=== PATIENT | male | born 1985 | race Caucasian/White ===

== ENCOUNTER 2020-10-09 13:15 | Emergency (ER) | payer BC, MEDICAID ==
[2020-10-09] MEDS ORDERED: ALBUTEROL 1 PUFF INH STA (14:23)
--- NOTE | 2020-10-09 14:30 | XRAY Report ---
PROCEDURE: Chest 1 View X-Ray INDICATIONS: dyspnea TECHNIQUE: One view of the chest was acquired. COMPARISON: None FINDINGS: Surgical changes and devices: None. Lungs and pleura: No pleural effusions or pneumothorax. Lungs are clear. Mediastinum: Mediastinal contours appear normal. Heart size is normal. Bones and chest wall: No suspicious bony lesions. Overlying soft tissues appear unremarkable. IMPRESSION: No abnormalities found. Reviewed by: Steven Lan MD on 10/09/2020 2:29 PM PST Approved by: Steven Lan MD on 10/09/2020 2:29 PM PST Station ID: [id number]
--- NOTE | 2020-10-09 14:38 | ED Physician Documentation ---
PD HPI URI - Stated complaint Stated Complaint: SOA/COUGH - Chief complaint Chief Complaint: Resp - History obtained from History obtained from: Patient - History of Present Illness Pain level max: 0 Pain level now: 0 Associated symptoms: Productive cough, Dyspnea (wheezing). No: Fever, Chills, Hemoptysis, Chest pain Contributing factors: Sick contact Improves by: Rest Recently seen: Not recently seen - Additional information Additional information: 35-year-old male presents to the emergency department stating that he has had cough and congestion for the past 3 days, increasing shortness of breath. Feels like he is wheezing when he lays down. No history of asthma. Does not use inhalers. Has had pneumonia in the past. No fevers. 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 Worse with walking, better with rest. Review of Systems Constitutional: denies: Fever, Chills Throat: denies: Sore throat Cardiac: denies: Chest pain / pressure Respiratory: reports: Cough, Wheezing GI: denies: Nausea, Vomiting, Diarrhea Skin: denies: Rash Musculoskeletal: denies: Neck pain, Back pain Neurologic: denies: Headache PD PAST MEDICAL HISTORY - Past Medical History Past Medical History: No - Past Surgical History Past Surgical History: Yes HEENT: Tonsil/Adenoidectomy - Present Medications Home Medications: Ambulatory Orders Medication Instructions Recorded Confirmed Albuterol Sulf [Ventolin Hfa 1 - 2 puffs INH Q4HR PRN #1 inhaler 10/09/20 Inhaler] - Allergies Allergies/Adverse Reactions: Allergies Allergy/AdvReac Type Severity Reaction Status Date / Time Sulfa (Sulfonamide Allergy Anaphylaxis Verified 10/09/20 13:26 Antibiotics) - Living Situation Living Situation: reports: With family Living Arrangement: reports: At home - Social History Does the pt smoke?: No Smoking Status: Never smoker Does the pt drink ETOH?: No Does the pt have substance abuse?: No PD ED PE NORMAL - Vitals Vital signs reviewed: Yes - General General: Alert and oriented X 3, No acute distress - HEENT HEENT: Moist mucous membranes - Neck Neck: Supple, no meningeal sign - Cardiac Cardiac: RRR - Respiratory Respiratory: No respiratory distress, Other (Mild wheezing bilaterally) - Abdomen Abdomen: Soft, Non tender, Non distended - Derm Derm: Warm and dry - Extremities Extremities: No edema - Neuro Neuro: Alert and oriented X 3 Results - Vitals Vitals: Vital Signs - 24 hr 10/09/20 10/09/20 10/09/20 13:26 13:30 14:01 Temperature 37.5 C Heart Rate 94 100 90 Respiratory 18 23 23 Rate Blood Pressure 158/103 H 158/107 H 174/105 H O2 Saturation 97 98 98 10/09/20 10/09/20 10/09/20 14:30 14:46 15:00 Temperature Heart Rate 86 91 85 Respiratory 19 22 22 Rate Blood Pressure 171/116 H 175/125 H O2 Saturation 96 95 10/09/20 10/09/20 10/09/20 15:30 16:00 16:49 Temperature 36.6 C Heart Rate 80 85 100 Respiratory 11 L 29 H 20 Rate Blood Pressure 181/125 H 181/106 H 169/99 H O2 Saturation 97 98 100 Oxygen O2 Source Room air - Labs Labs: Laboratory Tests 10/09/20 14:26 Nasal Adenovirus (PCR) NOT DETECTED Nasal B. parapertussis DNA (PCR) NOT DETECTED Nasal Coronavir 229E PCR NOT DETECTED Nasal Coronavir HKU1 PCR NOT DETECTED Nasal Coronavir NL63 PCR NOT DETECTED Nasal Coronavir OC43 PCR NOT DETECTED Nasal Enterovir/Rhinovir PCR NOT DETECTED Nasal Influenza B PCR NOT DETECTED Nasal Influenza A PCR NOT DETECTED Nasal Parainfluen 1 PCR NOT DETECTED Nasal Parainfluen 2 PCR NOT DETECTED Nasal Parainfluen 3 PCR NOT DETECTED Nasal Parainfluen 4 PCR NOT DETECTED Nasal RSV (PCR) NOT DETECTED Nasal B.pertussis DNA PCR NOT DETECTED Nasal C.pneumoniae (PCR) NOT DETECTED [place] Human Metapneumo PCR NOT DETECTED Nasal M.pneumoniae (PCR) NOT DETECTED Nasal SARS-CoV-2 (PCR) NOT DETECTED PD MEDICAL DECISION MAKING - ED course Complexity details: reviewed results, re-evaluated patient, considered differential, d/w patient ED course: 35-year-old male presents to the emergency department with viral URI symptoms. Negative respiratory panel. Negative x-ray. Wheezing resolved with albuterol treatment. No hypoxia. No respiratory distress. Negative Covid. We will continue supportive care and have him follow-up with his doctor. Patient counseled regarding signs and symptoms for which I believe and urgent re- evaluation would be necessary. Patient with good understanding of and agreement to plan and is comfortable going home at this time. This document was made in part using voice recognition software. While efforts are made to proofread this document, sound alike and grammatical errors may occur. Departure - Departure Disposition: 01 Home, Self Care Clinical Impression: Viral URI with cough Condition: Good Instructions: ED URI Viral Follow-Up: your,doctor as needed. [Other] Prescriptions: Albuterol Sulf [Ventolin Hfa Inhaler] 1 - 2 puffs INH Q4HR PRN #1 inhaler PRN Reason: Shortness Of Air/Wheezing Comments: Your chest x-ray does not show any acute abnormalities today. Your respiratory panel is negative. Your Covid test is negative. This should improve over the next week or so. Use the inhaler as needed. Discharge Date/Time: 10/09/20 16:49
[2020-10-09 16:24] LABS: C. PNEUMONIAE- RESP PCR PANEL NOT DETECTED
[2020-10-09 16:51] VITALS: BP 169/99
== END 2020-10-09 16:49 | disposition home or self-care (01) ==
LOC: ED 13:15
DX: J06.9 Acute upper respiratory infection, unspecified (principal); Z20.828 Contact with and (suspected) exposure to other viral communicable diseases
CPT/HCPCS: 0202U; 71045; 94640; 94664; 99283; 99284

== ENCOUNTER 2020-11-17 08:00 | Outpatient (CLI) | payer BC | END 2020-11-17 23:59 | LOC: LAB.R 08:00 | PROVIDERS: ATTEND Family Medicine | DX: Z20.828 Contact with and (suspected) exposure to other viral communicable diseases (principal) | CPT/HCPCS: 87275; 87276 ==

== ENCOUNTER 2021-06-07 09:07 | Outpatient (CLI) | payer BC ==
--- NOTE | 2021-06-07 10:50 | XRAY Report ---
PROCEDURE: Lumbar Spine 2 View INDICATIONS: BACK PAIN LUMBAR TECHNIQUE: 2 views of the lumbar spine were acquired. COMPARISON: None. FINDINGS: Bones: Mild lumbar levoscoliosis. No listhesis. Vertebral body heights maintained. Disc height loss f rom L1-L2 through L5-S1 with associated degenerative change of facet hypertrophy, worst from L3-L4 th rough L5-S1. Sacroiliac joint spaces are maintained. Soft tissues: Overlying bowel gas pattern is normal. No suspicious soft tissue calcifications. IMPRESSION: Overall moderate lower lumbar spine degenerative changes. Reviewed by: Bill Carey MD on 06/07/2021 10:49 AM PDT Approved by: Bill Carey MD on 06/07/2021 10:49 AM PDT Station ID: [id number]
== END 2021-06-07 23:59 | disposition home or self-care (01) ==
LOC: DI.N 09:07
PROVIDERS: ATTEND Family Medicine
DX: M47.816 Spondylosis without myelopathy or radiculopathy, lumbar region (principal); M47.817 Spondylosis without myelopathy or radiculopathy, lumbosacral region; M51.36 Other intervertebral disc degeneration, lumbar region; M51.37 Other intervertebral disc degeneration, lumbosacral region

== ENCOUNTER 2022-04-24 21:01 | Emergency (ER) | payer BC ==
--- NOTE | 2022-04-24 21:47 | ED Physician Documentation ---
History of Present Illness - Stated complaint Stated Complaint: LT SIDE BACK PX - Chief complaint Chief Complaint: Abd Pain - History obtained from History obtained from: Patient - Additonal information Additional information: The patient comes to the emergency department chief complaint of a deep ache in his left flank that started earlier today. The patient states that he was feeling fine yesterday, and he is not really sure what caused the pain to,. 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 He denies any chronic back issues. Patient has no history of kidney stones and does not know of any family members who do. He is not noticed any blood in his urine. No dysuria, fever, or chills. No nausea. The patient denies any radiation of the pain. He states it is about a 4/10 and is worse if he takes a very deep breath or steps down. No other complaints at this time. Review of Systems Ten Systems: 10 systems reviewed and negative Constitutional: reports: Reviewed and negative Eyes: reports: Reviewed and negative Ears: reports: Reviewed and negative Nose: reports: Reviewed and negative Throat: reports: Reviewed and negative Cardiac: reports: Reviewed and negative Respiratory: reports: Reviewed and negative GI: reports: Reviewed and negative : reports: Reviewed and negative Skin: reports: Reviewed and negative Musculoskeletal: reports: Back pain (L flank/CVA) Neurologic: reports: Reviewed and negative Psychiatric: reports: Reviewed and negative Endocrine: reports: Reviewed and negative Immunocompromised: reports: Reviewed and negative PD PAST MEDICAL HISTORY - Past Medical History Past Medical History: Yes Cardiovascular: Hypertension Psych: Depression, Anxiety - Past Surgical History Past Surgical History: Yes General: Gastric surgery HEENT: Tonsil/Adenoidectomy - Present Medications Home Medications: Ambulatory Orders Medication Instructions Recorded Confirmed Albuterol Sulf [Ventolin Hfa 1 - 2 puffs INH Q4HR PRN #1 inhaler 10/09/20 04/24/22 Inhaler] Cyclobenzaprine [Flexeril] 10 mg PO TID PRN #20 tablet 04/24/22 Escitalopram [Lexapro] 10 mg PO DAILY 04/24/22 04/24/22 - Allergies Allergies/Adverse Reactions: Allergies Allergy/AdvReac Type Severity Reaction Status Date / Time Sulfa (Sulfonamide Allergy Anaphylaxis Verified 04/24/22 21:08 Antibiotics) - Social History Does the pt smoke?: No Smoking Status: Never smoker Does the pt drink ETOH?: Yes Does the pt have substance abuse?: No - Immunizations Immunizations are current?: No - POLST Patient has POLST: No PD ED PE NORMAL - Vitals Vital signs reviewed: Yes - General General: Alert and oriented X 3, No acute distress, Well developed/nourished - HEENT HEENT: Atraumatic, PERRL, EOMI, Moist mucous membranes - Neck Neck: Supple, no meningeal sign, No bony TTP - Cardiac Cardiac: RRR, No murmur, Strong equal pulses - Respiratory Respiratory: No respiratory distress, Clear bilaterally - Abdomen Abdomen: Soft, Non tender, Non distended - Back Back: No CVA TTP, No spinal TTP, Other (No tenderness to palpation at any point in patient's left back.) - Derm Derm: Normal color, Warm and dry, No rash - Extremities Extremities: No deformity, No edema - Neuro Neuro: Alert and oriented X 3, recording artist 2-12 intact - Psych Psych: Normal mood, Normal affect Results - Vitals Vitals: Vital Signs - 24 hr 04/24/22 04/24/22 04/24/22 21:05 21:08 23:22 Temperature 36.3 C L 36.4 C L 36.9 C Heart Rate 92 71 76 Respiratory 14 16 12 Rate Blood Pressure 131/105 H 143/100 H 138/98 H O2 Saturation 98 97 99 Oxygen O2 Source Room air - Labs Labs: Laboratory Tests 04/24/22 20:30 Urine Color YELLOW Urine Clarity CLEAR Urine pH 6.0 Ur Specific [place] >=1.030 H Urine Protein NEGATIVE Urine Glucose (UA) NEGATIVE Urine Ketones NEGATIVE Urine Occult Blood NEGATIVE Urine Nitrite NEGATIVE Urine Bilirubin NEGATIVE Urine Urobilinogen 0.2 (NORMAL) Ur Leukocyte Esterase NEGATIVE Ur Microscopic Review NOT INDICATED Urine Culture Comments NOT INDICATED - Rads (name of study) CT abdomen pelvis without contrast Radiology: Final report received, EMP read indepedently, See rad report (3 mm stone within the kidney, but no ureterolithiasis. No other abnormalities.) PD MEDICAL DECISION MAKING - ED course Complexity details: reviewed results, re-evaluated patient, considered differential, d/w patient ED course: Patient declined symptomatic management in the emergency department. CT abdomen pelvis without contrast was obtained and showed a small stone within the left kidney but no stone in the ureter. Remainder of CT was unremarkable. The patient was advised regarding symptomatic management at home. We have discussed the usual indications for follow-up and return. Departure - Departure Disposition: 01 Home, Self Care Clinical Impression: Low back strain Qualifiers: Encounter type: initial encounter Qualified Code(s): S39.012A - Strain of muscle, fascia and tendon of lower back, initial encounter Condition: Stable Instructions: ED Sprain Strain Lumbar Prescriptions: Cyclobenzaprine [Flexeril] 10 mg PO TID PRN #20 tablet PRN Reason: Spasms Comments: A preliminary look at your CT scan demonstrates no kidney stone in the ureter. You do have what appears to be a small stone sitting in your left kidney, but since this is not coming down at this point in time, it should not be the cause of your pain. No other obvious abnormalities have been found on your CT and most likely, the pain is coming from a musculoskeletal origin. You may take the muscle relaxers, as needed, along with ibuprofen and/or Tylenol. You may try heat packs and stretches to help, as well. Please follow-up with your primary care physician if needed. Your prescription has been electronically transmitted to [facility] in [place]. Discharge Date/Time: 04/24/22 23:23
[2022-04-24 22:36] LABS: BILIRUBIN,URINE NEGATIVE (NEGATIVE); GLUCOSE, URINE (UA) NEGATIVE (NEGATIVE); KETONES,URINE (UA) NEGATIVE (NEGATIVE); LEUKOCYTE ESTERASE, URINE NEGATIVE (NEGATIVE); NITRITE,URINE NEGATIVE (NEGATIVE); OCCULT BLOOD,URINE NEGATIVE (NEGATIVE); PROTEIN,URINE NEGATIVE (NEGATIVE); UROBILINOGEN,URINE 0.2 (NORMAL) E.U./dL (NORMAL)
[2022-04-24 22:37] LABS: CLARITY,URINE CLEAR (CLEAR)
[2022-04-24] MEDS ORDERED: CYCLOBENZAPRINE 10 MG Prepack 2 PO PRN (23:13)
[2022-04-24 23:23] VITALS: BP 138/98
--- NOTE | 2022-04-24 23:42 | CT Report ---
PROCEDURE: Abdomen/Pelvis WO INDICATIONS: L flank pain TECHNIQUE: Noncontrast 5 mm thick sections acquired from the diaphragms to the symphysis. 5 mm coronal and sagi ttal reformats were then performed. For radiation dose reduction, the following was used: automated exposure control, adjustment of mA and/or kV according to patient size. COMPARISON: None. FINDINGS: Image quality: Excellent. ABDOMEN: Lung bases: There is mild dependant atelectasis. Heart: Heart is normal in size. URINARY: Right Kidney and Ureter: No stones or hydronephrosis. No perinephric stranding. No hydroureter. Left Kidney and Ureter: There is a nonobstructing left renal stone measuring up to 0.3 cm no hydrone phrosis or perinephric stranding. No hydroureter. Bladder: Normal wall thickness. No stones. ABDOMEN: Liver: Noncontrast evaluation of the liver demonstrates no discrete mass. Gallbladder: Within normal limits without calcified gallstones. Biliary ducts: No biliary ductal dilatation. Pancreas: Unremarkable. Spleen: Normal in size. Adrenal Glands: No adrenal nodules. Stomach and Bowel: There are postsurgical changes along the stomach consistent with stomach consiste nt with prior gastric surgery. Stomach, small bowel loops, and colon are normal in caliber and wall t hickness. No evidence of appendicitis. There is colonic diverticulosis without acute diverticulitis. Peritoneum: No abnormal intraperitoneal fluid. No free air. Ventral Wall: No hernia. Abdominal Nodes: No retroperitoneal or mesenteric adenopathy by size criteria. Vessels: Aorta and inferior vena cava are normal in size. PELVIS: Pelvic Organs: Unremarkable. Pelvic Nodes: No enlarged lymph nodes. Miscellaneous: No inguinal hernias identified. Bones: Visualized osseous structures demonstrate a lucent lesion with septations in the L1 vertebral body consistent with a hemangioma. IMPRESSION: 1. Left nephrolithiasis without evidence of obstructive uropathy. 2. No acute abdominal abnormality. Specifically, there is colonic diverticulosis without acute divert iculitis Reviewed by: Jayden Kahn MD on 04/24/2022 11:45 PM PDT Approved by: Jayden Kahn MD on 04/24/2022 11:45 PM PDT Station ID: [id number]
== END 2022-04-24 23:23 | disposition home or self-care (01) ==
LOC: ED 21:01
DX: S39.012A Strain of muscle, fascia and tendon of lower back, initial encounter (principal); X58.XXXA Exposure to other specified factors, initial encounter; I10 Essential (primary) hypertension
CPT/HCPCS: 81001; 81003; 87086; 99282; 99284

== ENCOUNTER 2023-09-10 07:09 | Outpatient (CLI) | payer BC ==
[2023-09-10 07:45] LABS: ALBUMIN 4.7 g/dL (3.2-5.5); ALBUMIN/GLOBULIN RATIO 1.5 (1.0-2.2); ALKALINE PHOSPHATASE 116 IU/L (42-121); ALT ALANINE AMINOTRANSFERASE 60 IU/L (10-60); AST ASPARTATE AMINOTRANSFERASE 37 IU/L (10-42); BILIRUBIN,TOTAL 0.7 mg/dL (0.2-1.0); BUN - BLOOD UREA NITROGEN 17 mg/dL (6-20); CALCIUM 9.7 mg/dL (8.5-10.3); CARBON DIOXIDE - CO2 30 mmol/L (21-32); CHLORIDE 100 mmol/L (101-111); CHOLESTEROL 228 mg/dL; CREATININE 0.8 mg/dL (0.6-1.3); GFR - MDRD 108 (>89); GLUCOSE 85 mg/dL (74-104); POTASSIUM 3.8 mmol/L (3.5-4.5); SODIUM 138 mmol/L (135-145); TOTAL PROTEIN 7.9 g/dL (6.4-8.9); TRIGLYCERIDES 169 mg/dL (48-352); VLDL CHOLESTEROL 34 mg/dL
[2023-09-10 07:55] LABS: BASOPHILS # (AUTO) 0.1 10^3/uL (0.0-0.1); BASOPHILS % (AUTO) 0.6 %; EOSINOPHILS # (AUTO) 0.3 10^3/uL (0.0-0.7); EOSINOPHILS % (AUTO) 3.1 %; HCT - HEMATOCRIT 40.4 % (42.0-52.0); HGB - HEMOGLOBIN 13.5 g/dL (14.0-18.0); LYMPHOCYTES # (AUTO) 2.3 10^3/uL (1.5-3.5); LYMPHOCYTES % (AUTO) 24.6 %; MEAN CORPUSCULAR HEMOGLOBIN 29.3 pg (27.0-31.0); MEAN CORPUSCULAR HGB CONC 33.4 g/dL (32.0-36.0); MEAN CORPUSCULAR VOLUME 87.6 fL (80.0-94.0); MEAN PLATELET VOLUME 10.1 fL (7.4-11.4); MONOCYTES # (AUTO) 0.5 10^3/uL (0.0-1.0); MONOCYTES % (AUTO) 5.1 %; NEUTROPHILS # (AUTO) 6.1 10^3/uL (1.5-6.6); NEUTROPHILS % (AUTO) 65.5 %; PLT - PLATELET COUNT 258 10^3/uL (130-450); RED BLOOD COUNT 4.61 10^6/uL (4.70-6.10); RED CELL DISTRIBUTION WIDTH 13.4 % (12.0-15.0); WHITE BLOOD COUNT 9.3 x10^3/uL (4.8-10.8)
[2023-09-11 00:06] LABS: CHOL/HDL RATIO 5.3 (<5.0); HDL CHOLESTEROL 43 mg/dL; LDL CHOLESTEROL,CALCULATED 151 mg/dL; LDL/HDL RATIO 3.5 (<3.6)
[2023-09-11 08:10] LABS: VITAMIN D 25-HYDROXY 27.9 ng/mL (30.0-100.0)
[2023-09-11 17:08] LABS: FREE TESTOSTERONE(DIRECT) 9.6 pg/mL (8.7-25.1)
== END 2023-09-10 07:10 | disposition home or self-care (01) ==
LOC: LAB 07:09
PROVIDERS: ATTEND Physician Assistant
DX: E55.9 Vitamin D deficiency, unspecified (principal); Z13.9 Encounter for screening, unspecified; E29.1 Testicular hypofunction
CPT/HCPCS: 36415; 80053; 80061; 82306; 83721; 84402; 84403; 84443; 85025

== ENCOUNTER 2023-10-15 13:51 | Outpatient (CLI) | payer BC ==
--- NOTE | 2023-10-15 14:52 | Sleep Patient Instructions ---
Sleep Center Visit Summary - Patient Visit Information Reason for Visit: Initial consult for evaluation of sleep disordered breathing and other sleep issues. - Patient Instructions Instructions Attached: Sleep Study Home Monitor, Sleep Study Additional Instructions: You will be completing a sleep study, either an in-lab polysomnography (PSG) or home sleep study (HST). You will follow-up in the sleep care office after the sleep study is completed to hear the results and talk about therapy, if needed. You will be called by our office staff to schedule this appointment, but you may contact us with any questions. - Clinic Information Contact: [facility] [address] [place] [id number] [email or web address] T: [phone]
--- NOTE | 2023-10-15 14:57 | SLEEP CARE CONSULTATION ---
Information from patient questionnaire entered by Lynn Bloom. I have reviewed and concur with the information entered by Lynn Bloom. This document represents the service I personally performed and the decisions made by me, Shilpi Kay ARNP. History of Present Illness Service Date and Time: 10/15/2023 1351 Reason for Visit: New patient, Previously diagnosed sleep apnea Chief Complaint: reports: Insomnia, Unrefreshed sleep, Fatigue, Frequent awakenings at night Date of Onset: ALWAYS PROGRESSIVLY WORSENING Usual bedtime: 8AM WORK OVER NIGHTS Time it takes to fall asleep: UNSURE (thinks 30 minutes) Snores at night: No (unknown, sleeps alone) Observed to quit breathing while asleep: No Number of times waking at night: 3+ Reasons for waking at night: reports: Other (CANT SLEEP TOSS AND TURN CHANGE RESTING). denies: Choking, Gasping for air Toss, Turn, or Twitch while sleeping: Yes Recalls having dreams: No Usually gets out of bed at: 5-6PM Feels refreshed in the morning: No Morning headache: No Sleepy or fatigued during the day: Yes Ever fallen asleep while driving: No (drowsy driving on long drives) Takes day naps: Yes (1 nap for 30 minutes during work weeks; on weekends more) Dreams during day naps: No Prior sleep studies: Yes Additional HPI information: I had the pleasure of seeing RODY MENJIVAR today regarding the possibility of him having a sleep disorder. His current complaints are insomnia, unrefreshed sleep, fatigue and frequent night awakenings. He says he always has had sleep issues but they have been increasing in last 6 months. He tosses/turns in bed, unrefreshed sleep and waking up at night a lot. 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 He states he can sleep 9 hours and it feels like 6 hours. He is "losing weekends" trying to catch up on sleep. He had a gastric sleeve surgery in 2017 and he did do a sleep study around that time which did diagnose him with sleep apnea. He was placed on a CPAP and used it for 2 years. He then moved from the area and did not see a sleep provider. Eventually he could not get supplies and stopped using his CPAP. He has not used the CPAP in about 4 years. 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 Patient is Single and lives in [place]. Have you smoked in the past 12 months: No Alcohol use: Yes Alcohol amount and frequency: 1-2 DRINKS SOCIAL 1 PER MONTH OR LESS Caffeine use: Yes Caffeine amount and frequency: 2OZ+ ALMOST QD Family History Family history of sleep disordered breathing: No Allergies and Home Medications Known drug allergies: Yes (SULFA) Drug allergies reviewed: Yes Home medication list reviewed: Yes Allergy and home medication list: Allergies Sulfa (Sulfonamide Antibiotics) Allergy (Verified 10/14/23 15:19) Anaphylaxis Home Medications Medication Instructions Recorded Confirmed Last Taken Type Multivitamin 10/15/23 Unknown History Review of Systems Weight gain over past 5 years: 30 Weight loss over past 5 years: 10 down now Cardiovascular: reports: high blood pressure Gastrointestinal: reports: heartburn Neurological: reports: headaches Psychiatric: reports: anxiety, depression Ear/Nose/Throat: reports: nasal congestion, dry mouth/throat, hoarseness, tonsillectomy, wisdom teeth removed Endocrine: reports: sluggishness Musculoskeletal: reports: joint pain, neck pain, back pain, muscle pain or cramping Immunologic: reports: sneezing Physical Exam Vital signs obtained and entered by: LYNN Mathis MA Blood Pressure: 132/80 (LEFT ARM) Cuff size: long Heart Rate: 70 O2 Saturation: 97 Height: 5 ft 11.75 in Weight: 321 lb 9.6 oz Body Mass Index: 43.9 BMI Classification: Morbidly Obese Neck circumference: 17.25 Mouth and throat: narrow oropharynx Soft palate: long Hard palate: normal Uvula: normal Uvula visualization: 25% Mallampati Class III Tongue: enlarged in size with teeth choi on lateral edges Tonsils: absent bilaterally Neck: normal w/o lymphadenopathy or thyromegaly Heart: regular rate and rhythm Lungs: clear bilaterally Impression and Plan 1. Suspected Obstructive Sleep Apnea-Hypopnea Syndrome, as previously diagnosed and as suggested by a history of frequent awakening during the night, unrefreshed sleep and cognitive impairment. Narrow oropharynx and obesity are common predisposing factors for obstructive sleep apnea-hypopnea syndrome. I recommend proceeding to polysomnography to confirm the diagnosis and to assess severity. If the patient has significant sleep disordered breathing, a manual CPAP titration study will also be performed to find the optimal treatment pressure. I informed the patient of what the sleep studies involve and after some discussion, obtained agreement to proceed. The pathophysiology of obstructive sleep apnea-hypopnea syndrome was discussed with the patient and health risks of cardiovascular and cerebrovascular disease if not treated. Risks of drowsy driving discussed in detail and patient advised to avoid long distance driving and to window shade ring coverer at the first sign of drowsiness. Patient agreed to plan. * Schedule polysomnography. * Avoid long distance driving or driving when feeling sleepy. * Avoid alcohol, sedative and muscle relaxant around bedtime. * Attempt to lose weight. * Review instructions provided by trained office staff on how to prepare for the sleep study. * Return for follow-up after sleep study completed. Counseling Topics: Weight loss health impact Plan: PSG/HST Visit Type: In Office Time Spent with Patient (minutes): 30 Provider Statement: I spent 100% of the Face to Face Visit with the patient with greater than 50% spent counseling the patient and coordination of care.
[2023-10-15 15:04] VITALS: BP 132/80; O2SAT 97
== END 2023-10-15 13:52 | disposition home or self-care (01) ==
LOC: SC 13:51
PROVIDERS: ATTEND Nurse Practitioner Family
DX: G47.30 Sleep apnea, unspecified (principal); E66.01 Morbid (severe) obesity due to excess calories; Z68.41 Body mass index [BMI] 40.0-44.9, adult
CPT/HCPCS: 99203; 99212

== ENCOUNTER 2023-10-30 17:23 | Outpatient (CLI) | payer BC ==
[2023-10-30 21:24] LABS: PROLACTIN 12.41 ng/mL
== END 2023-10-30 17:24 | disposition home or self-care (01) ==
LOC: LAB.N 17:23
PROVIDERS: ATTEND Urology
DX: E29.1 Testicular hypofunction (principal)
CPT/HCPCS: 36415; 82670; 83002; 84146; 84403

== ENCOUNTER 2023-11-05 07:36 | Outpatient (CLI) | payer BC | END 2023-11-05 07:37 | disposition home or self-care (01) | LOC: SC 07:36 | PROVIDERS: ATTEND Nurse Practitioner Family | DX: R09.02 Hypoxemia (principal) | CPT/HCPCS: 95806 ==

== ENCOUNTER 2023-11-18 15:22 | Outpatient (CLI) | payer BC ==
--- NOTE | 2023-11-18 15:53 | Sleep Patient Instructions ---
Sleep Center Visit Summary - Patient Visit Information Reason for Visit: Sleep Study Followup - Patient Instructions Instructions Attached: Sleep Study Additional Instructions: You will be completing an in-lab polysomnography (PSG). You will follow-up in the sleep care office after the sleep study is completed to hear the results and talk about therapy, if needed. You will be called by our office staff to schedule this appointment, but you may contact us with any questions. - Clinic Information Contact: [facility] [address] [place] [address] [email or web address] T: [phone]
[2023-11-18 15:58] VITALS: BP 147/102; O2SAT 97
--- NOTE | 2023-11-18 15:58 | SLEEP CARE CONSULTATION ---
Information from patient questionnaire entered by Tresa Bloom. I have reviewed and concur with the information entered by Tresa Bloom. This document represents the service I personally performed and the decisions made by , Shilpi Kay ARNP. History of Present Illness Service Date and Time: 11/18/2023 152 Initial Vista Sleepiness Scale score: 10 (10/02/23) Current [place] Sleepiness Scale score: 6 (11/18/23) Additional HPI information: RODY MENJIVAR returns for follow up and results of the recently performed home sleep study. The patient was informed of the following findings: No significant sleep disordered breathing with an average AHI of 4.3 and kourtney oxygen saturation of 89%. I explained the pathophysiology behind obstructive sleep apnea. Patient does not have sleep apnea and was advised how weight gain could increase the risk of developing sleep apnea in the future. I strongly encouraged the patient to lose weight. Patient does not have significant sleep disordered breathing but has elevated AHI in supine position so advised positional therapy. Methods to achieve positional management therapy were discussed; such as, positioning with pillows, wearing a T-shirt with tennis balls sewn into the back or commercially available products. Patient has mild snoring. Snoring can be reduced by weight loss. Weight loss is best achieved with diet consult. Patient instructed to contact PCP for referral. Snoring can also be treated with an oral appliance from a dentist. Advised to check insurance coverage. In addition, an ENT evaluation can be do to see if other treatment is indicated. Patient counseled not drink alcohol less than 4 hours before bedtime as it can increase snoring and apnea. Patient was cautioned about risks of drowsy driving until sleepiness symptoms resolve. Patient denies drowsy driving. Sleep Study - Results Type of Sleep Study: Home sleep study (COMPLETED 11/05/23) Prior sleep studies: Yes Polysomnography/Home Sleep Study results: Physician Impression: The quality of the study is fair due to partial loss of pulse oximetry signal. The length of the study is adequate (> 240 minutes). Please also see the tabulated and graphic data. 1. No significant sleep disordered breathing, with an AHI of 4.3/hr and kourtney SaO2 of 89%. During the study, the patient had 10 apneas (10 obstructive, 0 central, 0 mixed) and 9 hypopneas. The longest episode lasted 64.5 seconds. The few respiratory events occurred almost exclusively during supine sleep (supine AHI was 8.3 and non-supine, 1.84). 2. Hypoxemia (ICD-10 R09.02), minimal, with the lowest oxygen saturation of 89 % and 4.1 minutes with SaO2 under 90%. Baseline oxygen saturation was normal (Average oxygen saturation was 96%). Allergies and Home Medications Known drug allergies: Yes (as listed) Drug allergies reviewed: Yes Home medication list reviewed: Yes (no changes) Allergy and home medication list: Allergies Sulfa (Sulfonamide Antibiotics) Allergy (Verified 11/17/23 10:15) Anaphylaxis Review of Systems Review of systems same as previous: Yes (no changes) Physical Exam Vital signs obtained and entered by: TRESA Mathis MA Blood Pressure: 147/102 (RIGHT ARM) Cuff size: regular Heart Rate: 61 O2 Saturation: 97 Height: 5 ft 11.75 in Weight: 325 lb 3.2 oz Body Mass Index: 44.4 BMI Classification: Morbidly Obese Impression and Plan 1. Suspected Obstructive Sleep Apnea-Hypopnea Syndrome, as suggested by a history of irregular snoring, frequent awakening during the night, unrefreshed sleep, cognitive impairment, and excessive daytime sleepiness. He returned after a HST but the study was fair due to partial loss of pulse oximetry. I recommend proceeding to confirming in lab polysomnography. I obtained agreement to proceed. 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 I offered and he accepted a one time dose of Zolpidem 5 mg for night of study. He has not tried this medication before, risks and adverse reaction reviewed. The pathophysiology of obstructive sleep apnea-hypopnea syndrome was discussed with the patient and health risks of cardiovascular and cerebrovascular disease if not treated. Risks of drowsy driving discussed in detail and patient advised to avoid long distance driving and to press puller at the first sign of drowsiness. Patient agreed to plan. 2. Obesity, unspecified. Currently patients BMI is 44.4. Obesity increases the risk of apnea, CPAP pressure requirements and overall health risks especially cardiovascular and diabetes. Thus patient is advised to lose weight. * Schedule polysomnography. * 5 mg Zolpidem for night of sleep study, prescription given to patient to fill and bring to study * Avoid long distance driving or driving when feeling sleepy. * Avoid alcohol, sedative and muscle relaxant around bedtime. * Attempt to lose weight. * Review instructions provided by trained office staff on how to prepare for the sleep study. * Return for follow-up after sleep study completed. Counseling Topics: Sleeping position, Weight loss health impact Plan: In Lab PSG Visit Type: In Office ([facility]) Time Spent with Patient (minutes): 20 Provider Statement: I spent 100% of the Face to Face Visit with the patient with greater than 50% spent counseling the patient and coordination of care.
== END 2023-11-18 15:23 | disposition home or self-care (01) ==
LOC: SC 15:22
PROVIDERS: ATTEND Nurse Practitioner Family
DX: G47.10 Hypersomnia, unspecified (principal); G47.8 Other sleep disorders; R06.83 Snoring; F32.A Depression, unspecified; E66.01 Morbid (severe) obesity due to excess calories; Z68.41 Body mass index [BMI] 40.0-44.9, adult
CPT/HCPCS: 99212; 99213